=== PATIENT | male | born 1990 | race African-American/Black ===

== ENCOUNTER 2023-08-12 10:43 | Emergency (ER) | payer OTHER ==
[2023-08-12 11:11] VITALS: BP 115/79; PULSE 75; RESP 16; TEMP 98.7; BMI 24.3
[2023-08-12 12:04] LABS: HEMATOCRIT 43.4 % (35.4-49); HEMOGLOBIN 14.3 G/dL (11.7-16.9); MCH 32.4 pg (25.7-33.7); MCHC 32.9 g/dl (32.0-35.9); MEAN CELL VOLUME 98.3 fl (80-96); MEAN PLT VOLUME 9.1 fl (7.5-11.1); PLATELET COUNT 212.4 10^3/uL (134-434); RBC 4.42 10^6/uL (4.00-5.60); RDW 13.7 % (11.9-15.9); WHITE BLOOD COUNT 5.5 10^3/uL (4.0-10.8)
[2023-08-12 12:07] LABS: PLATELET ESTIMATE ADEQUATE
[2023-08-12 12:09] LABS: ALBUMIN 4.8 g/dl (3.4-5.0); BILIRUBIN,TOTAL 0.9 mg/dl (0.2-1); CALCIUM 9.6 mg/dl (8.5-10.1); CREATININE 0.9 mg/dl (0.6-1.3); POTASSIUM 3.5 mmol/L (3.5-5.1); TOT PROT 7.9 g/dl (6.4-8.2)
[2023-08-12 13:52] LABS: SYPHILIS W/ RPR CONF NON-REACTIVE (NONREACTIVE)
[2023-08-12 14:21] LABS: HIV INTERPRETATION NEGATIVE (NEGATIVE)
== END 2023-08-12 14:13 | disposition home or self-care (01) ==
LOC: FER 10:43
DX: R30.0 Dysuria (principal); R10.9 Unspecified abdominal pain; N43.3 Hydrocele, unspecified
CPT/HCPCS: 36415; 74176-TC; 76870-TC; 80053; 81003; 85027; 86780; 87086; 87389; 87491; 87591; 99284-25

== ENCOUNTER 2024-02-12 02:41 | Emergency (ER) | payer OTHER ==
[2024-02-12 02:57] VITALS: BP 120/85; PULSE 78; RESP 18; TEMP 99.2; BMI 24.3
== END 2024-02-12 03:05 | disposition home or self-care (01) ==
LOC: FER 02:41
DX: M79.601 Pain in right arm (principal); M79.602 Pain in left arm
CPT/HCPCS: 99282-25